=== PATIENT | female | born 1980 | race Caucasian/White ===

== ENCOUNTER → 2018-11-15 | Outpatient (CLI) | payer OTHER ==
--- NOTE | 2018-11-16 06:21 | CT ---
TECHNIQUE: Spiral CT examination of the paranasal sinuses. Multiplanar reformats provided. This exam was performed according to our departmental dose-optimization program, which includes automated exposure control, adjustment of the mA and/or kV according to patient size and/or use of iterative reconstruction technique. CLINICAL HISTORY PROVIDED: SINUSITIS, SEPTAL PROTOCOL COMPARISON: None available. FINDINGS: Right: Maxillary: Inspissated secretions in the anterior right maxillary sinus. Multilobulated mucosal retention cyst along the floor of the right maxillary sinus measuring 2.1 x 1.7 cm. No air-fluid level. No hyperostosis. Ethmoid: Inspissated secretions posteriorly. Mild scattered mucosal thickening. Sphenoid: Unremarkable. Frontal: Unremarkable. Occluded ostiomeatal unit. Left: Maxillary: Mucosal thickening along the floor of the maxillary sinus. Ethmoid: Unremarkable. Sphenoid: Unremarkable. Frontal: Unremarkable. Infundibulum: Unremarkable. Middle Meatus: Unremarkable. Nasal Passage: Septal Deviation: S-shaped curvature of the nasal septum. Septal Spur: None of significance. Mucosa: Right middle turbinate mucosal hypertrophy. Elana Bullosa: Not present. Notable Anatomic Findings: None of significance. Visible Brain and Orbits: Unremarkable. Incidental Findings: None of significance. IMPRESSION: Paranasal sinus disease most notably in the right maxillary sinus as detailed above with an occluded ostiomeatal unit. Electronically signed by: Ramiro Spring MD 11/16/2018 6:19 AM CDT
== END ==
LOC: CT 09:44
DX: J32.9 Chronic sinusitis, unspecified (principal)